=== PATIENT | female | born 1950 | race African-American/Black ===

== ENCOUNTER → 2017-03-25 | Outpatient (CLI) | payer MEDICARE, MEDICAID ==
[~2017-03-25] MED LIST: BARIUM SULFATE 450ML ORAL SUSP ONE; BENAZEPRIL-HCTZ PO; HYDR-523 PO; IOHEXOL-300 100 ML BOTTLE ONE; SODIUM CHLORIDE 0.9% 10ML VIAL ONE
== END | disposition home or self-care (01) ==
LOC: CT 07:29
PROVIDERS: ATTEND Internal Medicine Hematology & Oncology
DX: C20 Malignant neoplasm of rectum (principal); R91.1 Solitary pulmonary nodule; N81.10 Cystocele, unspecified; K46.9 Unspecified abdominal hernia without obstruction or gangrene
CPT/HCPCS: 71260; 74177; A4216; Q9967

== ENCOUNTER → 2017-10-11 | Outpatient (CLI) | payer MEDICARE, MEDICAID ==
[~2017-10-11] MED LIST changes: -SODIUM CHLORIDE 0.9% 10ML VIAL ONE
== END | disposition home or self-care (01) ==
LOC: CT 07:28
PROVIDERS: ATTEND Internal Medicine Hematology & Oncology
DX: K76.89 Other specified diseases of liver (principal); K76.0 Fatty (change of) liver, not elsewhere classified; K42.9 Umbilical hernia without obstruction or gangrene; R91.8 Other nonspecific abnormal finding of lung field
CPT/HCPCS: 71260; 74177; Q9967

== ENCOUNTER → 2018-01-26 | Outpatient (CLI) | payer MEDICARE, MEDICAID | END | disposition home or self-care (01) | LOC: CT 07:43 | PROVIDERS: ATTEND Internal Medicine Hematology & Oncology | DX: K76.0 Fatty (change of) liver, not elsewhere classified (principal); K76.89 Other specified diseases of liver; Z85.048 Personal history of other malignant neoplasm of rectum, rectosigmoid junction, and anus | CPT/HCPCS: 71260; 74177; Q9967 ==

== ENCOUNTER → 2019-01-30 | Outpatient (CLI) | payer MEDICARE, MEDICAID | END | disposition home or self-care (01) | LOC: CT 08:19 | PROVIDERS: ATTEND Internal Medicine Hematology & Oncology | DX: K43.9 Ventral hernia without obstruction or gangrene (principal); K76.89 Other specified diseases of liver; K76.0 Fatty (change of) liver, not elsewhere classified; C20 Malignant neoplasm of rectum; K91.89 Other postprocedural complications and disorders of digestive system | CPT/HCPCS: 74177; Q9967 ==

== ENCOUNTER 2019-05-16 13:06 | Inpatient (IN) | payer MEDICARE, MEDICAID ==
[~2019-05-16] VITALS: Ht 152.4 cm; Wt 81.2 kg
[~2019-05-16 13:06] MED LIST changes: -BARIUM SULFATE 450ML ORAL SUSP ONE; -IOHEXOL-300 100 ML BOTTLE ONE
[2019-05-16] MEDS ORDERED: ONDANSETRON HCL 4MG/2ML INJ IV STA ×2 (14:59→19:13)
[2019-05-16] MEDS ORDERED: SODIUM CHLORIDE 0.9% 1,000 ML IV ONE (14:59)
[2019-05-16] MEDS ORDERED: MORPHINE SULFATE 4 MG/ML CPJ (NOT FOR IM USE) IV STA ×2 (14:59→19:12)
[2019-05-16 15:42] LABS: BASOPHILS % 0.5 % (0.0-2.0); EOSINOPHILS % 0.2 % (0.0-5.0); HEMATOCRIT. 42.7 % (36.0-48.0); HEMOGLOBIN. 14.9 g/dL (12.0-16.0); MEAN CORPUSCULAR HEMOGLOBIN 30.9 pg (28.0-32.0); MEAN CORPUSCULAR VOLUME 88.7 fL (81.0-99.0); MEAN PLATELET VOLUME 8.8 fl (7.4-10.4); MONOCYTES % 10.2 % (2.0-8.0); NEUTROPHILS % 67.1 % (40.0-76.0); PLATELET 222 x1000/uL (130-400); RED BLOOD CELL COUNT 4.82 mill/uL (4.2-5.4); RED CELL DISTRIBUTION WIDTH 13.4 % (11.6-14.6)
[2019-05-16 15:45] LABS: CHLORIDE 106 mEq/L (98-107)
[2019-05-16 15:46] LABS: INR 1.1; PROTHROMBIN TIME 11.6 sec (9.6-11.0)
[2019-05-16] MEDS ORDERED: IOHEXOL-300 100 ML BOTTLE ONE (18:28)
[2019-05-16 19:21] LABS: CLARITY URINE CLEAR (CLEAR); COLOR URINE YELLOW (YELLOW); KETONES URINE NEGATIVE (NEGATIVE); LEUKOCYTE ESTERASE URINE NEGATIVE (NEGATIVE); NITRITE URINE NEGATIVE (NEGATIVE); OCCULT BLOOD URINE NEGATIVE (NEGATIVE); PROTEIN URINE NEGATIVE (NEGATIVE); SPECIFIC GRAVITY URINE 1.051 (1.005-1.030)
[2019-05-16] MEDS ORDERED: DIPHENHYDRAMINE 50MG/ML VIAL IV PRN (19:45)
[2019-05-16] MEDS ORDERED: IPRATROPIUM/ALBUTEROL 0.5-3(2.5)MG/3ML NEB NEB PRN (19:45)
[2019-05-16] MEDS ORDERED: NA PHOS,M-B/NA PHOS,DI-BA ENEMA 118ML PR PRN (19:45)
[2019-05-16] MEDS ORDERED: ONDANSETRON HCL 4MG/2ML INJ IV PRN (19:45)
[2019-05-16] MEDS ORDERED: LORAZEPAM 2MG/ML CPJ IV PRN (19:45)
[2019-05-16] MEDS ORDERED: ACETAMINOPHEN 325MG TABLET PO PRN (19:45)
[2019-05-16] MEDS ORDERED: CLONIDINE 0.1MG TABLET PO PRN (19:45)
[2019-05-16] MEDS ORDERED: MORPHINE SULFATE 2 MG/ML CPJ (NOT FOR IM USE) IV PRN (19:45)
[2019-05-16] MEDS ORDERED: MAGNESIUM/ALUMINUM HYDROXIDE/SIMETHICONE 30ML UDC PO PRN (19:45)
[2019-05-16] MEDS ORDERED: GUAIFENESIN 200MG/10ML SUGAR FREE UDC PO PRN (19:45)
[2019-05-16 23:48] VITALS: BP 184/80
[2019-05-17] VITALS: BP 184/80
[2019-05-17 00:48] VITALS: BP 184/80
[2019-05-17] MEDS ORDERED: DEXT 5%/0.45% NACL KCL 10MEQ/L 1,000 ML IV SCH (03:00)
[2019-05-17 04:00] VITALS: BP 134/89
[2019-05-17] MEDS ORDERED: BACITRACIN 50,000 UNITS/VIAL ONE (06:16)
[2019-05-17] MEDS ORDERED: BUPIVACAINE HCL 0.5% (5MG/ML) 50ML ONE (06:16)
[2019-05-17 07:24] LABS: BASOPHILS % 0.4 % (0.0-2.0); EOSINOPHILS % 2.7 % (0.0-5.0); HEMATOCRIT. 38.6 % (36.0-48.0); HEMOGLOBIN. 13.5 g/dL (12.0-16.0); LYMPHOCYTES % 31.5 % (20.0-50.0); MEAN CORPUSCULAR HEMOGLOBIN 31.2 pg (28.0-32.0); MEAN CORPUSCULAR VOLUME 89.2 fL (81.0-99.0); MEAN PLATELET VOLUME 9.5 fl (7.4-10.4); MONOCYTES % 11.4 % (2.0-8.0); PLATELET 217 x1000/uL (130-400); RED BLOOD CELL COUNT 4.33 mill/uL (4.2-5.4); RED CELL DISTRIBUTION WIDTH 13.5 % (11.6-14.6)
[2019-05-17 07:42] LABS: CHLORIDE 110 mEq/L (98-107)
[2019-05-17 07:50] LABS: LDL CHOLESTEROL 88 mg/dL (5-100)
[2019-05-17 07:52] LABS: HDL CHOLESTEROL 41 mg/dL (40-59); T4 FREE 1.58 ng/dL (0.76-1.46)
[2019-05-17] MEDS ORDERED: ONDANSETRON HCL 4MG/2ML INJ IV PRN (09:15)
[2019-05-17] MEDS ORDERED: HYDROMORPHONE HCL/PF 2MG/ML CPJ ONE (09:21)
[2019-05-17] MEDS: HYDROMORPHONE HCL/PF 2MG/ML CPJ IV PRN ×12 (09:24→18:01)
[2019-05-17] MEDS ORDERED: KCL 20MEQ/100ML PREMIX 100 ML IV SCH (10:00)
[2019-05-17 12:00] VITALS: BP 124/67
[2019-05-17] MEDS: DEXT 5%/0.45% NACL KCL 20MEQ/L 1,000 ML IV SCH ×2 (12:08→21:44)
[2019-05-17] MEDS: CEFAZOLIN 1000MG PREMIX 50 ML IV SCH ×2 (12:08→17:49)
[2019-05-17] MEDS: ENOXAPARIN 40MG/0.4ML SYR SUBCUT SCH (12:10)
[2019-05-17] MEDS: FAMOTIDINE 20MG/2ML VIAL IV SCH ×2 (12:10→20:37)
[2019-05-17] MEDS: MORPHINE SULFATE 4 MG/ML CPJ (NOT FOR IM USE) IV PRN ×2 (12:33→20:54)
[2019-05-17] MEDS: METRONIDAZOLE 500 MG PREMIX 100 ML IV SCH ×2 (13:03→18:25)
[2019-05-17 16:00] VITALS: BP 114/58
[2019-05-17 20:00] VITALS: BP 130/60
[2019-05-17] MEDS: HYDROCODONE/ACETAMINOPHEN 5/325MG TABLET PO PRN (20:38)
[2019-05-18] VITALS (7 sets, daily range): BP systolic 112–167; BP diastolic 56–87
[2019-05-18] MEDS: HYDROMORPHONE HCL/PF 2MG/ML CPJ IV PRN ×5 (00:43→19:57)
[2019-05-18] MEDS: CEFAZOLIN 1000MG PREMIX 50 ML IV SCH ×3 (00:53→18:56)
[2019-05-18] MEDS: METRONIDAZOLE 500 MG PREMIX 100 ML IV SCH (00:54)
[2019-05-18] MEDS: DEXT 5%/0.45% NACL KCL 20MEQ/L 1,000 ML IV SCH (06:12)
[2019-05-18 06:37] LABS: BASOPHILS % 0.2 % (0.0-2.0); EOSINOPHILS % 0.3 % (0.0-5.0); HEMATOCRIT. 33.8 % (36.0-48.0); HEMOGLOBIN. 11.8 g/dL (12.0-16.0); MEAN CORPUSCULAR HEMOGLOBIN 31.1 pg (28.0-32.0); MEAN CORPUSCULAR VOLUME 89.3 fL (81.0-99.0); MEAN PLATELET VOLUME 9.1 fl (7.4-10.4); MONOCYTES % 12.7 % (2.0-8.0); NEUTROPHILS % 67.8 % (40.0-76.0); PLATELET 182 x1000/uL (130-400); RED BLOOD CELL COUNT 3.78 mill/uL (4.2-5.4); RED CELL DISTRIBUTION WIDTH 13.4 % (11.6-14.6)
[2019-05-18 06:44] LABS: CHLORIDE 110 mEq/L (98-107)
[2019-05-18] MEDS: FAMOTIDINE 20MG/2ML VIAL IV SCH ×2 (09:41→20:58)
[2019-05-18] MEDS: ENOXAPARIN 40MG/0.4ML SYR SUBCUT SCH (09:41)
[2019-05-18] MEDS ORDERED: KCL 10MEQ/50ML PREMIX 50 ML IV NR (10:00)
[2019-05-19] VITALS: BP 117/59
[2019-05-19] MEDS: HYDROMORPHONE HCL/PF 2MG/ML CPJ IV PRN ×2 (00:26→05:42)
[2019-05-19] MEDS: CEFAZOLIN 1000MG PREMIX 50 ML IV SCH ×2 (01:36→09:29)
[2019-05-19] MEDS: DEXT 5%/0.45% NACL KCL 20MEQ/L 1,000 ML IV SCH ×2 (01:36→23:59)
[2019-05-19 04:00] VITALS: BP 106/44
[2019-05-19 06:47] LABS: BASOPHILS % 0.4 % (0.0-2.0); EOSINOPHILS % 2.3 % (0.0-5.0); HEMATOCRIT. 33.2 % (36.0-48.0); HEMOGLOBIN. 11.7 g/dL (12.0-16.0); MEAN CORPUSCULAR HEMOGLOBIN 31.5 pg (28.0-32.0); MEAN CORPUSCULAR VOLUME 89.3 fL (81.0-99.0); MEAN PLATELET VOLUME 9.3 fl (7.4-10.4); NEUTROPHILS % 63.3 % (40.0-76.0); PLATELET 177 x1000/uL (130-400); RED BLOOD CELL COUNT 3.72 mill/uL (4.2-5.4); RED CELL DISTRIBUTION WIDTH 13.1 % (11.6-14.6)
[2019-05-19 07:02] LABS: CHLORIDE 109 mEq/L (98-107)
[2019-05-19] MEDS: FAMOTIDINE 20MG/2ML VIAL IV SCH ×2 (09:28→21:38)
[2019-05-19] MEDS: ENOXAPARIN 40MG/0.4ML SYR SUBCUT SCH (09:28)
[2019-05-19 16:00] VITALS: BP 139/55
[2019-05-19] MEDS: DOCUSATE SODIUM 100MG CAPSULE PO PRN (17:44)
[2019-05-19] MEDS: HYDROCODONE/ACETAMINOPHEN 5/325MG TABLET PO PRN (17:45)
[2019-05-19 20:00] VITALS: BP 135/65
[2019-05-20] VITALS: BP 143/67
[2019-05-20] MEDS: HYDROCODONE/ACETAMINOPHEN 5/325MG TABLET PO PRN ×5 (00:01→22:26)
[2019-05-20 04:00] VITALS: BP 122/62
[2019-05-20 06:15] LABS: CHLORIDE 109 mEq/L (98-107)
[2019-05-20 06:25] LABS: BASOPHILS % 0.3 % (0.0-2.0); EOSINOPHILS % 4.3 % (0.0-5.0); HEMOGLOBIN. 11.6 g/dL (12.0-16.0); MEAN CORPUSCULAR HEMOGLOBIN 31.5 pg (28.0-32.0); MEAN CORPUSCULAR VOLUME 89.4 fL (81.0-99.0); MEAN PLATELET VOLUME 9.4 fl (7.4-10.4); MONOCYTES % 11.3 % (2.0-8.0); NEUTROPHILS % 54.1 % (40.0-76.0); PLATELET 185 x1000/uL (130-400); RED BLOOD CELL COUNT 3.69 mill/uL (4.2-5.4); RED CELL DISTRIBUTION WIDTH 13.4 % (11.6-14.6)
[2019-05-20 08:00] VITALS: BP 124/64
[2019-05-20] MEDS: FAMOTIDINE 20MG/2ML VIAL IV SCH ×2 (09:12→22:26)
[2019-05-20] MEDS: DOCUSATE SODIUM 100MG CAPSULE PO PRN (09:12)
[2019-05-20] MEDS: ENOXAPARIN 40MG/0.4ML SYR SUBCUT SCH (09:13)
[2019-05-20 12:00] VITALS: BP 110/68
[2019-05-20 16:00] VITALS: BP 120/68
[2019-05-20 20:00] VITALS: BP 131/60
[2019-05-21 00:09] VITALS: BP 128/52
[2019-05-21 04:00] VITALS: BP 127/69
[2019-05-21 07:07] LABS: BASOPHILS % 0.6 % (0.0-2.0); EOSINOPHILS % 4.8 % (0.0-5.0); HEMATOCRIT. 34.6 % (36.0-48.0); HEMOGLOBIN. 11.8 g/dL (12.0-16.0); MEAN CORPUSCULAR HEMOGLOBIN 30.6 pg (28.0-32.0); MEAN CORPUSCULAR VOLUME 89.7 fL (81.0-99.0); MEAN PLATELET VOLUME 9.5 fl (7.4-10.4); MONOCYTES % 10.3 % (2.0-8.0); NEUTROPHILS % 57.3 % (40.0-76.0); PLATELET 208 x1000/uL (130-400); RED BLOOD CELL COUNT 3.85 mill/uL (4.2-5.4); RED CELL DISTRIBUTION WIDTH 13.2 % (11.6-14.6)
[2019-05-21 07:16] LABS: CHLORIDE 109 mEq/L (98-107)
[2019-05-21 08:00] VITALS: BP 128/63
[2019-05-21] MEDS: FAMOTIDINE 20MG/2ML VIAL IV SCH ×2 (10:29→22:42)
[2019-05-21] MEDS: ENOXAPARIN 40MG/0.4ML SYR SUBCUT SCH (10:29)
[2019-05-21 12:03] VITALS: BP 132/52
[2019-05-21 16:11] VITALS: BP 127/65
[2019-05-21 20:00] VITALS: BP 138/75
[2019-05-22] VITALS: BP 127/66
[2019-05-22 04:00] VITALS: BP 133/65
[2019-05-22 08:00] VITALS: BP 120/66
[2019-05-22] MEDS: FAMOTIDINE 20MG/2ML VIAL IV SCH (09:24)
[2019-05-22] MEDS: ENOXAPARIN 40MG/0.4ML SYR SUBCUT SCH (09:25)
[2019-05-22 12:00] VITALS: BP 115/66
[2019-05-22 14:31] VITALS: BP 113/66
== END 2019-05-22 15:14 | disposition home health service (06) | DRG 354 ==
LOC: ER 13:06 → 7WST 19:34 → ENRESERV 22:21
PROVIDERS: ADMIT Internal Medicine; ATTEND Internal Medicine
PROC: 0WUF0JZ Supplement Abdominal Wall with Synthetic Substitute, Open Approach (ICD-10-PCS; principal; 2019-05-16)
PROC: 0D9670Z Drainage of Stomach with Drainage Device, Via Natural or Artificial Opening (ICD-10-PCS; 2019-05-16)
DX: K43.0 Incisional hernia with obstruction, without gangrene (principal); E46 Unspecified protein-calorie malnutrition; M19.90 Unspecified osteoarthritis, unspecified site; I10 Essential (primary) hypertension; E86.0 Dehydration; Z85.9 Personal history of malignant neoplasm, unspecified; Z88.2 Allergy status to sulfonamides; Z85.038 Personal history of other malignant neoplasm of large intestine; Z90.49 Acquired absence of other specified parts of digestive tract; Z88.8 Allergy status to other drugs, medicaments and biological substances; Z79.899 Other long term (current) drug therapy; Z98.51 Tubal ligation status; Z82.49 Family history of ischemic heart disease and other diseases of the circulatory system; Z68.35 Body mass index [BMI] 35.0-35.9, adult
CPT/HCPCS: 36415; 71045; 74177; 80048; 80061; 81003; 84439; 84443; 84484; 88302; 93005; 97116; 97162; 99285; C1781; C1893; J0690; J1170; J1200; J1650; J2270; J2405; J3480; J3490; J7030; Q9967

== ENCOUNTER → 2021-03-04 | Outpatient (CLI) | payer MEDICARE, MEDICAID ==
[~2021-03-04] MED LIST changes: +BARIUM SULFATE 450ML ORAL SUSP ONE; +IOHEXOL-300 100 ML BOTTLE ONE
== END | disposition home or self-care (01) ==
LOC: CT 07:32
PROVIDERS: ATTEND Internal Medicine Hematology & Oncology
DX: C20 Malignant neoplasm of rectum (principal); K76.89 Other specified diseases of liver; K76.0 Fatty (change of) liver, not elsewhere classified; E04.1 Nontoxic single thyroid nodule; N28.1 Cyst of kidney, acquired; K57.30 Diverticulosis of large intestine without perforation or abscess without bleeding; I70.90 Unspecified atherosclerosis; K42.9 Umbilical hernia without obstruction or gangrene; M47.816 Spondylosis without myelopathy or radiculopathy, lumbar region
CPT/HCPCS: 71260; 74177; Q9967